=== PATIENT | male | born 1995 | race Two or more races ===

== ENCOUNTER 2019-10-04 12:57 | Emergency (ER) | payer SELFPAY ==
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
[2019-10-04] MEDS ORDERED: LORazepam 1 MG Tab PO ONE (13:38)
[2019-10-04 13:45] LABS: ANION GAP 11.2 mmol/L (10-20); CHLORIDE,CL 99 mmol/L (98-107); SODIUM,NA 139 mmol/L (136-145)
[2019-10-04 13:47] LABS: BARBITURATE SCREEN,URINE NEGATIVE (NEGATIVE); BENZODIAZEPINES SCREEN,URINE NEGATIVE (NEGATIVE); EDDP,URINE SCREEN NEGATIVE (NEGATIVE); METHAMPHETAMINE SCREEN, URINE NEGATIVE (NEGATIVE); TCA SCREEN,URINE NEGATIVE (NEGATIVE); THC SCREEN,URINE 50 NG/ML NEGATIVE (NEGATIVE)
== END 2019-10-04 15:41 ==
LOC: EDBD 12:57 → VM.ED 12:57
DX: F41.9 Anxiety disorder, unspecified (principal); F32.9 Major depressive disorder, single episode, unspecified; F22 Delusional disorders
CPT/HCPCS: 36415; 80053; 80305-QW; 80307; 81001; 85025; 99284-GF; 99285; A9270-GY